=== PATIENT | female | born 1990 | race Native Hawaiian/Other Pacific Islander ===

== ENCOUNTER 2018-12-25 06:27 | Day surgery (SDC) | payer OTHER ==
[2018-12-22 11:44] VITALS: BMI 22.6
[2018-12-25] MEDS ORDERED: Oxytocin 10 Units/ml Inj ONE (07:26)
[2018-12-25] MEDS ORDERED: Midazolam 2 MG/2 ML VIAL ONE (07:52)
[2018-12-25] MEDS ORDERED: Propofol 10 mg/ml Inj (20 ML) ONE (07:53)
[2018-12-25] MEDS ORDERED: Lactated Ringer's 1,000 ML IV ONE (08:11)
[2018-12-25 09:25] VITALS: RESP 16
[2018-12-25 10:31] VITALS: BP 105/60; PULSE 70; TEMP 97.8; O2SAT 100
--- NOTE | 2018-12-26 06:05 | OP ---
PROCEDURE DATE: 12/25/2018 PREOPERATIVE DIAGNOSIS: A 28-year-old 1, para 0 with 8 weeks' missed . POSTOPERATIVE DIAGNOSIS: A 28-year-old 1, para 0 with 8 weeks' missed . SURGEON: Faisal Sawant MD CERTIFIED LACTATION COUNSELOR: None. ANESTHESIA: General. ANESTHESIOLOGIST: Dina William MD COMPLICATIONS: None. PROCEDURE PERFORMED: Suction dilatation and curettage. DESCRIPTION OF PROCEDURE: After informed consent was obtained, the patient was brought to the operating room and placed on the table where general anesthesia was given. Once the anesthesia was given, the patient was prepped and draped in a normal sterile fashion. Examination of the uterus revealed it to 8 weeks' size. No pelvic or adnexal masses. Anterior lip of the cervix was grasped with a tenaculum. Gentle dilatation of the cervix was done. After the suction done, 6-[employer]aroese was used to take all the products and sent to pathology. Sharp curettage of the endometrium was done, it was again sent to pathology. After that, lot of massage was done. Uterus was . After that, sharp curettage was done and the suction was sent again. A part of the product was sent for chromosome. After that, the tenaculum was taken out, it was not bleeding. The patient tolerated the procedure well. Lap, sponge, and instrument counts were correct x2. Faisal Sawant MD
== END 2018-12-25 10:13 | disposition home or self-care (01) ==
LOC: C.SDS 06:27
PROVIDERS: ATTEND Obstetrics & Gynecology
DX: O02.1 Missed abortion (principal)
CPT/HCPCS: 36415; 59820; 86850; 86900; 88233; 88262; 88305; J2250; J2704; J3010; J7120